=== PATIENT | female | born 1965 | race Caucasian/White ===

== ENCOUNTER 2017-09-18 06:59 | Day surgery (SDC) | payer BC ==
[2017-09-14 14:38] VITALS: BMI 26.6
[~2017-09-18 06:59] MED LIST: DEXAMETHASONE SOD PHOSPHATE 10 MG/ML 1 ML VIAL IV ONE; HYDROmorphone 0.5 MG/0.5 ML SYRINGE IVP PRN; LACTATED RINGERS 1,000 ML IV SCH; LIDOCAINE 1% 20 ML VIAL (10MG/ML) FOR IV START INTRADERMA PRN; MIDAZOLAM 2 MG/2 ML VIAL IV PRN; ONDANSETRON 4 MG/2 ML VIAL IVP ONE; SCOPOLAMINE 1.5MG/72HR PATCH TRANSDERM ONE; ceFAZolin IN SWFI 2 GM/20 ML SYRINGE IVP ONE
[2017-09-18 07:19] VITALS: RESP 16
[2017-09-18] MEDS ORDERED: PROPOFOL 10 MG/ML 20 ML VIAL IV ONE (08:15)
[2017-09-18] MEDS ORDERED: MIDAZOLAM 2 MG/2 ML VIAL ONE (08:15)
[2017-09-18] MEDS ORDERED: LIDOCAINE 1% INJ 10MG/ML (20 ML MDV) ONE (08:15)
[2017-09-18] MEDS ORDERED: fentaNYL (PF) 50 MCG/ML 2 ML AMP ONE (08:15)
[2017-09-18] MEDS ORDERED: LACTATED RINGERS 1,000 ML IV ONE (08:50)
[2017-09-18] MEDS ORDERED: ceFAZolin 1,000 MG in SODIUM CHLORIDE 0.9% 1,000 ML IRRIGATION ONE (09:04)
[2017-09-18] MEDS ORDERED: ROPIVACAINE 1,100 MG, SODIUM CHLORIDE 0.9% 330 ML MISCELLANE PRN ×2 (09:18)
--- NOTE | 2017-09-18 09:20 | P.ONQ ---
Anesthesiology Proc Note - PNB - Peripheral Nerve Block Performed Left Popliteal Infusion Time Out Performed: Yes (0745) Procedure Start Time: 07:45 Procedure Stop Time: 08:00 Indication: Acute Post-Operative Pain, Dx/Pain Location (Left Ankle Pain), Requested by physician Sedation Type: Sedate with meaningful contact maintained Preparation: Sterile Prep Position: Supine Catheter: Indwelling Needle Types: On-Q Needle Size: 100mm (4") Needle Gauge: 21 Injectate: Other (see comment) (10ml 0.5% Ropivacaine + 10ml 2% lidocaine with 1 :200,000 epi) Blood Aspirated: No Pain Paresthesia on Injection Noted: No Resistance on Injection: Normal Events: Uneventful and Well Tolerated
--- NOTE | 2017-09-18 09:21 | P.ONQ ---
Anesthesiology Proc Note - PNB - Peripheral Nerve Block Performed Left Adductor Canal Single Time Out Performed: Yes (0745) Procedure Start Time: 07:45 Procedure Stop Time: 08:00 Indication: Acute Post-Operative Pain, Dx/Pain Location (Left ankle pain), Requested by physician Sedation Type: Sedate with meaningful contact maintained Preparation: Sterile Prep Position: Supine Catheter: None Needle Types: On-Q Needle Size: 100mm (4") Needle Gauge: 21 Injectate: Other (see comment) (10ml 0.5% Ropivacaine + 10 ml 2% Lidocaine with 1:200,000 epi) Blood Aspirated: No Pain Paresthesia on Injection Noted: No Resistance on Injection: Normal Events: Uneventful and Well Tolerated
[2017-09-18] MEDS ORDERED: HYDROcodone/APAP 5-325MG 1 EACH TAB PO PRN (10:13)
[2017-09-18] MEDS ORDERED: hydrOXYzine PAMOATE 25 MG CAP PO PRN (10:13)
[2017-09-18] MEDS ORDERED: HYDROmorphone 1 MG/ML 1 ML SYRINGE IVP PRN ×3 (10:13)
[2017-09-18] MEDS ORDERED: ONDANSETRON 4 MG/2 ML VIAL IVP PRN (10:13)
[2017-09-18] MEDS ORDERED: SENNOSIDES-DOCUSATE SODIUM 1 EACH TAB PO PRN (10:13)
[2017-09-18] MEDS ORDERED: TEMAZEPAM 15 MG CAP PO PRN (10:13)
--- NOTE | 2017-09-18 10:43 | FL ---
EXAMINATION TYPE: FL guidance operating room, XR ankle limited LT DATE OF EXAM: 09/18/2017 CLINICAL HISTORY: Open reduction and internal fixation of the left ankle TECHNIQUE: Fluoroscopy. COMPARISON: None. FINDINGS/IMPRESSION: Fluoroscopic guidance was provided during procedure performed by Dr. Hendrickson. A t otal of 26 seconds of fluoroscopic time was utilized during the procedure and 2 spot images was acqui red during open reduction internal fixation of the left ankle although images were not available for confirmation. Images were subsequently taken it 10:23 AM of the same date.
--- NOTE | 2017-09-18 10:45 | XR ---
EXAMINATION TYPE: XR ankle limited LT DATE OF EXAM: 09/18/2017 CLINICAL HISTORY: Open reduction internal fixation of the left ankle for fracture. Postoperative asse ssment of alignment. TECHNIQUE: Frontal and lateral images of the left ankle are obtained. COMPARISON: None. FINDINGS: There is surgical fixation of a posterior malleolar fracture and lateral malleolar fracture . Overlying casting material obscures bony detail and is uncertain if there is a medial malleolar com ponent. There is also surgical fixation of the fifth metatarsal. Bilateral fracture deformity appears to extend into the medial malleolus of the distal tibia. There is overlying soft tissue swelling and vertical skin mark anthony. Foci of subcutaneous emphysema are subtle. Ankle alignment appears nearly blaine tomic. IMPRESSION: Near-anatomic alignment of the left ankle status post open reduction and internal fixatio n of multiple left ankle fractures.
[2017-09-18] MEDS: LACTATED RINGERS 1,000 ML IV SCH ×2 (11:28→17:03)
--- NOTE | 2017-09-18 13:24 | P.CONS ---
History of Present Illness - Reason for Consult Consult date: 09/18/17 Medical management Requesting physician: Javier Hendrickson - Chief Complaint Left ankle pain - History of Present Illness This is a 51-year-old female who sustained a left ankle fracture few days ago and since then she has been having significant difficulty with pain and ambulation. Patient was evaluated by orthopedic in the office and was admitted to the hospital for elective ORIF of the left tibia/fibular fracture and left ankle. Patient is postoperative day #0. She is laying comfortably in bed. She does not have any concerns or complaints. I was asked to see her for medical management. Review of Systems Review of system: 14 points review of systems were obtained and were negative except to what were mentioned in the HPI. Past Medical History Additional Past Medical History / Comment(s): chronic back pain History of Any Multi-Drug Resistant Organisms: None Reported Past Surgical History: Appendectomy, Breast Surgery, Orthopedic Surgery, Uterine Ablation Additional Past Surgical History / Comment(s): left ankly surgery. breast reduction Past Anesthesia/Blood Transfusion Reactions: No Reported Reaction Smoking Status: Current every day smoker - Past Family History Mother Family Medical History: CVA/TIA, Hyperlipidemia Medications and Allergies Home Medications Medication Instructions Recorded Confirmed Type DULoxetine HCL [Cymbalta] 60 mg PO HS 09/14/17 09/18/17 History Zolpidem [Ambien] 10 mg PO HS PRN 09/14/17 09/18/17 History Allergies Allergy/AdvReac Type Severity Reaction Status Date / Time No Known Allergies Allergy Verified 09/14/17 14:31 Physical Exam Vitals: Vital Signs Temp Pulse Pulse Resp BP BP Pulse Ox 09/18/17 10:53 97 16 132/71 99 09/18/17 10:39 95 16 132/71 99 09/18/17 10:24 99 16 144/77 91 L 09/18/17 10:09 97 F L 103 H 16 144/77 97 09/18/17 07:15 98.0 F 88 16 148/95 98 Intake and Output 09/17/17 09/18/17 09/18/17 22:59 06:59 14:59 Intake Total 1201 Output Total 5 Balance 1196 Intake: IV 1201 Output: Estimated Blood Loss 5 General: The patient is awake and alert, in no distress Eye: there is normal conjunctiva bilaterally. Neck: The neck is supple, there is no JVD. Cardiovascular: Normal S1-S2, no S3-S4, no murmurs. Respiratory: Lungs clear to auscultation bilaterally Gastrointestinal: Abdomen is soft, nontender Musculoskeletal: There is no pedal edema on the right. Left lower extremity in Alexis wrap up to the midshin Neurological:. Speech is normal. Skin: Skin is warm and dry Assessment and Plan Assessment: 1. Postoperative day #0 status post ORIF of left tibia/fibular fracture and left ankle. Continue postoperative care. Orthopedic following closely. 2. DVT prophylaxis with aspirin twice daily per orthopedic protocol 3. Major depressive disorder, maintained on Symbyax at home we'll continue 4. Chronic insomnia, maintained on Ambien 10 mg at bedtime as needed at home. I cut the dose to 5 mg and counseled the patient about FDA black box warning about higher doses 5. Physical debility, awaiting PT/OT evaluation Today, I reviewed her medication list. Continue current regimen. We would obtain general lab work. We will continue to follow-up on the patient's closely with you. Thank you very much for the consultation.
[2017-09-18] MEDS: HYDROcodone/APAP 5-325MG 1 EACH TAB PO PRN ×2 (14:47→20:09)
[2017-09-18 15:17] LABS: ALT 35 U/L (9-52); AST 42 U/L (14-36); Albumin 3.5 g/dL (3.5-5.0); Alkaline Phosphatase 101 U/L (38-126); Anion Gap 7 mmol/L; Blood Urea Nitrogen 9 mg/dL (7-17); Calcium 9.8 mg/dL (8.4-10.2); Carbon Dioxide 25 mmol/L (22-30); Chloride 107 mmol/L (98-107); Glucose 173 mg/dL (74-99); Potassium 4.3 mmol/L (3.5-5.1); Sodium 139 mmol/L (137-145); Total Bilirubin 0.3 mg/dL (0.2-1.3); Total Protein 5.8 g/dL (6.3-8.2)
[2017-09-18 16:43] LABS: Basophils % (A) 0 %; Eosinophils % (A) 0 %; HCT 38.9 % (34.0-46.0); HGB 12.6 gm/dL (11.4-16.0); Lymphocytes # (A) 0.4 k/uL (1.0-4.8); Lymphocytes % (A) 6 %; MCH 33.1 pg (25.0-35.0); MCHC 32.5 g/dL (31.0-37.0); MCV 101.9 fL (80.0-100.0); Macrocytosis Slight; Mean Platelet Volume 7.4; Monocytes # (A) 0.2 k/uL (0-1.0); Monocytes % (A) 2 %; Neutrophils % (A) 91 %; Platelet Count 308 k/uL (150-450); RBC 3.82 m/uL (3.80-5.40); RDW 13.1 % (11.5-15.5); WBC 7.7 k/uL (3.8-10.6)
[2017-09-18] MEDS: ceFAZolin IN SWFI 2 GM/20 ML SYRINGE IVP SCH (17:03)
--- NOTE | 2017-09-18 17:26 | OP ---
OPERATIVE REPORT DATE OF PROCEDURE: 09/18/2017 SURGEON: Javier Hendrickson DO STRAPPER: HERMAN Steele PREOPERATIVE DIAGNOSES: 1. Displaced fracture of the distal left fibula. 2. Nondisplaced fracture of the distal left tibia. PROCEDURE PERFORMED: 1. Open reduction and internal fixation of displaced fracture of the distal left fibula. 2. Percutaneous fixation of the distal left tibial fracture. PROCEDURE: The patient was taken to the operative suite and placed in the supine position. General inhalation anesthesia was performed by Department of Anesthesiology. She had a popliteal and positioned in preparation for surgery. The Betadine prep was carried out over the left foot and ankle. Incision was made. Sterile drapes applied in the usual manner. The tourniquet insufflated to 350 mmHg. An incision was developed at the distal left fibula. Sharp dissection through the subcutaneous tissues performed. The periosteum was elevated and the fracture reduced. Previous tangential screw was noted. The distal fracture wad held in position to align component. A 6-hole tubular plate was then shaped and placed on the distal fibula and secured with screws. X- rays were obtained to document the alignment and placement. The distal tibia fracture was then approached and with reduction of the tibia fracture is stabilized. Two percutaneous screws were placed over guidewires and secured to fascia. Both AP and lateral x-rays showed anatomic position. Stability was well maintained. The area was irrigated both anterior and lateral. The fascia was approximated with 0 Vicryl suture, subcutaneous tissues with 2-0 Vicryl suture and skin approximated with titanium clips. Betadine, Adaptic and sterile pressure dressing applied. Tourniquet was deflated. She was placed in a posterior splint. Patient was transferred to recovery room satisfactory postop condition. GROSS PATHOLOGY: There was displacement of the distal fibula. There was a nondisplaced fracture of the tibia with significant displacement of the interstitial surface at this time. MMODL / IJN: [id number] / KELLY
[2017-09-18] MEDS ORDERED: HYDROmorphone 2 MG TAB PO PRN ×2 (20:17)
[2017-09-18] MEDS ORDERED: HYDROmorphone 4 MG TABLET PO PRN (20:18)
[2017-09-18] MEDS: ASPIRIN 325 MG TAB PO SCH (20:48)
[2017-09-18] MEDS ORDERED: ZOLPIDEM 5 MG TAB PO PRN (21:00)
[2017-09-18] MEDS ORDERED: DULoxetine HCL 60 MG CAPSULE.DR PO SCH (21:00)
[2017-09-19] MEDS: ceFAZolin IN SWFI 2 GM/20 ML SYRINGE IVP SCH (00:16)
[2017-09-19] MEDS: HYDROcodone/APAP 5-325MG 1 EACH TAB PO PRN (02:47)
--- NOTE | 2017-09-19 05:35 | P.PN ---
Progress Note - Text Progress Note Date: 09/19/17 The patient is doing well status post ORIF of the left ankle. Pain is well controlled by a combination of local anesthetic infusion through the popliteal block catheter and oral analgesics. There are no signs of infection around the catheter skin entry site. The local anesthetic infusion will be continued as per protocol.
[2017-09-19] MEDS ORDERED: HYDROcodone/APAP 7.5-325MG 1 EACH TAB PO PRN (08:25)
[2017-09-19] MEDS: ASPIRIN 325 MG TAB PO SCH (08:45)
[2017-09-19] MEDS: HYDROcodone/APAP 7.5-325MG 1 EACH TAB PO PRN ×2 (08:45→13:51)
[2017-09-19 08:52] VITALS: BP 131/88; PULSE 88; TEMP 97
--- NOTE | 2017-09-19 08:52 | P.DS ---
Providers Expected date of discharge: 09/19/17 Attending physician: Javier Hendrickson Consults: 09/18/17 10:16 Consult Physician Routine Consulting Provider: Flor Jeff Consult Reason/Comments: medical management Do you want consulting provider notified?: Yes 09/18/17 10:23 Consult Physician Routine Consulting Provider: Petra Barbosa Consult Reason/Comments: medical managment Do you want consulting provider notified?: Yes Primary care physician: Kevin Torrez - Discharge Diagnosis(es) (1) Status post ORIF of fracture of ankle Current Visit: Yes Status: Acute (2) Fracture of left ankle Current Visit: Yes Status: Acute Hospital Course: This is a 51-year-old female last seen in our office with complaints of left ankle pain after a fall. Patient was found to have a distal tibia and fibula fracture. After discussion and consideration, the patient elected to proceed with an ORIF of the left ankle. Patient was admitted to observation at [facility] underwent an ORIF of the left distal tibia and fibula on 09/18/[address] Hendrickson. The procedure was performed without complications or sequelae. The patient is seen and evaluated at bedside today. Pain is well-controlled. Patient has no new complaints today and denies any fevers, chills, nausea, vomiting, or shortness of breath. Vital signs are stable. Dressing and splint are clean dry and intact. Thigh is soft and nontender. Patient Is able to wiggle her toes freely without difficulty. Patient's left lower extremity is neurovascularly intact. The patient is orthopedically stable for discharge home today. Patient Condition at Discharge: Stable Plan - Discharge Summary Discharge Rx Participant: Yes New Discharge Prescriptions: New Aspirin 325 mg PO BID #60 tab Hydrocodone/Acetaminophen [[place] 7.5-325] 1 - 2 tab PO Q4-6H PRN #60 tab PRN Reason: Pain Sennosides-Docusate Sodium [Senokot-S] 2 tab PO DAILY #30 tablet No Action DULoxetine HCL [Cymbalta] 60 mg PO HS Zolpidem [Ambien] 10 mg PO HS PRN PRN Reason: Insomnia Discharge Medication List DULoxetine HCL [Cymbalta] 60 mg PO HS 09/14/17 [History] Zolpidem [Ambien] 10 mg PO HS PRN 09/14/17 [History] Aspirin 325 mg PO BID #60 tab 09/19/17 [Rx] Hydrocodone/Acetaminophen [[place] 7.5-325] 1 - 2 tab PO Q4-6H PRN #60 tab [Rx] Sennosides-Docusate Sodium [Senokot-S] 2 tab PO DAILY #30 tablet 09/19/17 [Rx] Follow up Appointment(s)/Referral(s): Javier Hendrickson DO [Doctor of Osteopathic Medicine] - 10 Days Activity/Diet/Wound Care/Special Instructions: Keep splint clean, dry, and intact Elevate and ice left ankle Non-weighbearing left leg Follow up with Dr. Hendrickson in 10 days Call [facility] with any questions or concerns, . Discharge Disposition: HOME SELF-CARE
[2017-09-19] MEDS: LACTATED RINGERS 1,000 ML IV SCH (13:55)
--- NOTE | 2017-09-19 14:04 | P.PN ---
Subjective Progress Note Date: 09/19/17 Patient is doing well today. No events overnight. She is looking forward to be discharged home. Objective - Vital Signs Vital signs: Vital Signs Temp 97.0 F L 09/19/17 08:51 Pulse 88 09/19/17 08:51 Resp 16 09/19/17 08:51 BP 131/88 09/19/17 08:51 Pulse Ox 96 09/19/17 08:51 Intake & Output 09/18/17 09/19/17 09/19/17 18:59 06:59 18:59 Intake Total 1301 2100 240 Output Total 5 Balance 1296 2100 240 Weight 77.111 kg Intake: IV 1201 Intake, IV Titration 1300 Amount Lactated Ringers 1,000 ml 1300 @ 100 mls/hr IV .Q10H ROSA M Rx#:[id number] Oral 100 800 240 Output: Estimated Blood Loss 5 Other: # Voids 3 - Exam General: The patient is awake and alert, in no distress Eye: there is normal conjunctiva bilaterally. Neck: The neck is supple, there is no JVD. Cardiovascular: Normal S1-S2, no S3-S4, no murmurs. Respiratory: Lungs clear to auscultation bilaterally Gastrointestinal: Abdomen is soft, nontender Neurological:. Speech is normal. Skin: Skin is warm and dry - Labs CBC & Chem 7: 09/18/17 14:45 09/18/17 14:45 Labs: Abnormal Lab Results - Last 24 Hours (Table) 09/18/17 09/18/17 Range/Units 14:45 14:45 MCV 101.9 H (80.0-100.0) fL Lymphocytes # 0.4 L (1.0-4.8) k/uL Creatinine 0.50 L (0.52-1.04) mg/dL Glucose 173 H (74-99) mg/dL AST 42 H (14-36) U/L Total Protein 5.8 L (6.3-8.2) g/dL Assessment and Plan Assessment: 1. Postoperative day #1 status post ORIF of left tibia/fibular fracture and left ankle. 2. DVT prophylaxis with aspirin twice daily per orthopedic protocol 3. Major depressive disorder, maintained on Cymbalta 4. Chronic insomnia, maintained on Ambien 10 mg at bedtime as needed at home. I cut the dose to 5 mg and counseled the patient about FDA black box warning about higher doses 5. Physical debility, continue physical therapy as tolerated Today, I reviewed her medication list and lab work results. Patient is medically cleared for discharge home
== END 2017-09-19 15:30 | disposition home or self-care (01) ==
LOC: OR 06:59 → 3SUR 10:05 → OR 09-19 15:30
PROVIDERS: ATTEND Orthopaedic Surgery
DX: S82.832A Other fracture of upper and lower end of left fibula, initial encounter for closed fracture (principal); S82.302A Unspecified fracture of lower end of left tibia, initial encounter for closed fracture; W11.XXXA Fall on and from ladder, initial encounter; F32.9 Major depressive disorder, single episode, unspecified; M54.9 Dorsalgia, unspecified; G89.29 Other chronic pain; F51.04 Psychophysiologic insomnia; F17.200 Nicotine dependence, unspecified, uncomplicated; Z79.1 Long term (current) use of non-steroidal anti-inflammatories (NSAID); Z79.899 Other long term (current) drug therapy
CPT/HCPCS: 97162; 80053; 85025; 73600; 27792; 27825; 64447; 64446; C1713; J2250; J1100; J2405; J0690 ×3; J2001; J3010; J2795; J2704

== ENCOUNTER 2022-11-30 12:07 | Emergency (ER) | payer BC, OTHER ==
[2022-11-30 12:46] VITALS: TEMP 98.1
[2022-11-30] MEDS ORDERED: SODIUM CHLORIDE 0.9% 2,000 ML IV STA (14:00)
[2022-11-30] MEDS ORDERED: ONDANSETRON 4 MG/2 ML VIAL IVP STA ×2 (14:00→18:22)
[2022-11-30] MEDS ORDERED: MORPHINE SULFATE 4 MG/ML SYRINGE IV STA ×2 (14:00→18:22)
[2022-11-30 14:19] LABS: Basophils % (A) 0 %; Eosinophils # (A) 0.1 k/uL (0-0.7); Eosinophils % (A) 1 %; Lymphocytes # (A) 0.9 k/uL (1.0-4.8); Lymphocytes % (A) 7 %; MCH 36.5 pg (25.0-35.0); MCHC 34.1 g/dL (31.0-37.0); MCV 106.9 fL (80.0-100.0); Macrocytosis Moderate; Monocytes # (A) 0.8 k/uL (0-1.0); Monocytes % (A) 6 %; Neutrophils # (A) 12.1 k/uL (1.3-7.7); Neutrophils % (A) 86 %; Platelet Count 315 k/uL (150-450); RBC 5.24 m/uL (3.80-5.40); RDW 13.2 % (11.5-15.5); WBC 14.1 k/uL (3.8-10.6)
[2022-11-30 14:23] LABS: HGB 19.1 gm/dL (11.4-16.0)
[2022-11-30 14:29] LABS: ALT 30 U/L (4-34); AST 48 U/L (14-36); African American GFR (CKD) >90 (>60 ml/min/1.73 sqM); Albumin 4.2 g/dL (3.5-5.0); Alkaline Phosphatase 141 U/L (38-126); Anion Gap 12 mmol/L; Blood Urea Nitrogen 8 mg/dL (7-17); Calcium 11.6 mg/dL (8.4-10.2); Carbon Dioxide 29 mmol/L (22-30); Chloride 101 mmol/L (98-107); Glucose 124 mg/dL (74-99); Non-African American GFR(CKD) >90 (>60 ml/min/1.73 sqM); Potassium 3.6 mmol/L (3.5-5.1); Sodium 142 mmol/L (137-145); Total Bilirubin 0.6 mg/dL (0.2-1.3); Total Protein 7.1 g/dL (6.3-8.2)
--- NOTE | 2022-11-30 15:12 | ED ---
Nausea/Vomiting/Diarrhea HPI - General Source: patient Mode of arrival: ambulatory Limitations: no limitations <Pamela Magaña - Last Filed: 12/02/22 00:17> <Ronan Meyer - Last Filed: 12/02/22 01:49> - General Chief complaint: Nausea/Vomiting/Diarrhea Stated complaint: vomiting blood Time Seen by Provider: 11/30/22 12:40 - History of Present Illness Initial comments: 57-year-old female with past nuchal history of chronic back pain who presents to the emergency department with reported nausea and vomiting. States that she has had the symptoms for the past 2 months however they have worsened over the past week. She did see her primary care doctor who placed her on omeprazole. States that she has been avoiding alcohol and spicy foods. She continues to take 2 Aleve a day. She continues to have diffuse epigastric pain with nausea and vomiting. Pain was so bad this morning that she came into the emergency department. She does admit to several episodes of nonbilious, nonbloody vomiting. Denies chest pain or shortness of breath. States that she drinks alcohol once per week however has not drank in the past 2 months due to this pain. No history of abdominal surgeries. No fevers. She has never had an EGD but did get a referral from her primary care doctor. No other alleviating, precipitating factors (Pamela Magaña) - Related Data Home Medications Medication Instructions Recorded Confirmed Omeprazole 40 mg PO W/BRKFST 11/30/22 11/30/22 Ondansetron Odt [Zofran Odt] 4 mg PO Q6H PRN 11/30/22 11/30/22 Sertraline [Zoloft] 100 mg PO DAILY 11/30/22 11/30/22 diazePAM [Valium] 2.5 - 5 mg PO DAILY PRN 11/30/22 11/30/22 hydrOXYzine HCL [Atarax] 25 mg PO DIRECTED 11/30/22 11/30/22 traZODone HCL 100 mg PO HS 11/30/22 11/30/22 Previous Rx's Medication Instructions Recorded HYDROcodone/APAP 5-325MG [[place] 1 tab PO Q4HR PRN 3 Days #18 tab 11/30/22 5-325] Ondansetron Odt [Zofran ODT] 4 mg PO Q8HR PRN #10 tab 11/30/22 Allergies Allergy/AdvReac Type Severity Reaction Status Date / Time No Known Allergies Allergy Verified 11/30/22 13:37 Review of Systems ROS Other: All systems not noted in ROS Statement are negative. <Pamela Magaña - Last Filed: 12/02/22 00:17> ROS Other: All systems not noted in ROS Statement are negative. <Ronan Meyer - Last Filed: 12/02/22 01:49> ROS Statement: Those systems with pertinent positive or pertinent negative responses have been documented in the HPI. Past Medical History Past Medical History: GERD/Reflux Additional Past Medical History / Comment(s): chronic back pain History of Any Multi-Drug Resistant Organisms: None Reported Past Surgical History: Appendectomy, Breast Surgery, Orthopedic Surgery, Uterine Ablation Additional Past Surgical History / Comment(s): left ankly surgery. breast reduction Past Anesthesia/Blood Transfusion Reactions: No Reported Reaction Past Psychological History: Anxiety, Depression Smoking Status: Current every day smoker Past Alcohol Use History: Occasional Past Drug Use History: None Reported - Past Family History Mother Family Medical History: CVA/TIA, Hyperlipidemia <Paemla Magaña - Last Filed: 12/02/22 00:17> General Exam Limitations: no limitations General appearance: alert, in no apparent distress Head exam: Present: atraumatic, normocephalic, normal inspection Eye exam: Present: normal appearance, PERRL, EOMI. Absent: scleral icterus, conjunctival injection, periorbital swelling ENT exam: Present: normal exam, mucous membranes moist Neck exam: Present: normal inspection. Absent: tenderness, meningismus, lympha denopathy Respiratory exam: Present: normal lung sounds bilaterally. Absent: respiratory distress, wheezes, rales, rhonchi, stridor Cardiovascular Exam: Present: regular rate, normal rhythm, normal heart sounds. Absent: systolic murmur, diastolic murmur, rubs, gallop, clicks GI/Abdominal exam: Present: soft, tenderness (Epigastric), normal bowel sounds. Absent: distended, guarding, rebound, rigid Extremities exam: Present: normal inspection, full ROM, normal capillary refill. Absent: tenderness, pedal edema, joint swelling, calf tenderness Back exam: Present: normal inspection Neurological exam: Present: alert, oriented X3, CN II-XII intact Psychiatric exam: Present: normal affect, normal mood Skin exam: Present: warm, dry, intact, normal color. Absent: rash <Pamela Magaña - Last Filed: 12/02/22 00:17> Course Vital Signs 11/30/22 11/30/22 11/30/22 12:36 13:27 13:47 Temperature 98.1 F Pulse Rate 90 85 87 Respiratory 22 20 16 Rate Blood Pressure 144/93 166/110 169/119 O2 Sat by Pulse 97 92 L 96 Oximetry 11/30/22 11/30/22 11/30/22 15:00 15:49 16:44 Temperature Pulse Rate 87 98 68 Respiratory 20 20 20 Rate Blood Pressure 180/110 170/118 180/120 O2 Sat by Pulse 98 96 96 Oximetry 11/30/22 11/30/22 11/30/22 18:00 18:50 18:56 Temperature Pulse Rate 74 70 68 Respiratory 16 20 16 Rate Blood Pressure 180/119 147/100 144/100 O2 Sat by Pulse 98 98 98 Oximetry Medical Decision Making - Lab Data Result diagrams: 11/30/22 14:04 11/30/22 14:04 <Pamela Magaña - Last Filed: 12/02/22 00:17> - Lab Data Result diagrams: 11/30/22 14:04 11/30/22 14:04 <Ronan Meyer - Last Filed: 12/02/22 01:49> - Medical Decision Making Was pt. sent in by a medical professional or institution (, PA, DRUG AND ALCOHOL TREATMENT SPECIALIST, urgent care, hospital, or intermediate...) When possible be specific @ -No Did you speak to anyone other than the patient for history (EMS, parent, family, police, friend...)? What history was obtained from this source @ -No Did you review nursing and triage notes (agree or disagree)? Why? @ -I reviewed and agree with nursing and triage notes Were old charts reviewed (outside hosp., previous admission, EMS record, old EKG, old radiological studies, urgent care reports/EKG's, intermediate records)? Report findings @ -No old charts were reviewed Differential Diagnosis (chest pain, altered mental status, abdominal pain women, abdominal pain men, vaginal bleeding, weakness, fever, dyspnea, syncope, headache, dizziness, GI bleed, back pain, seizure, CVA, palpatations, mental health, musculoskeletal)? @ -Differential Abdominal Pain Women: Appendicitis, Cholecystitis, diverticulosis, ischemic bowel, pancreatitis, hepatitis, UTI, gastroenteritis, AAA, incarcerated hernia, bowel obstruction, constipation, inflammatory bowel, hepatitis, peptic ulcer disease, splenic infarction, perforated viscus, vulvitis, ovarian torsion, PID, kidney stone, placenta abruption, this is not meant to be an all-inclusive list EKG interpreted by me (3pts min.). @ -Yes demonstrates sinus rhythm with a rate of 84. AL interval 173. QRS 84. QTC of 428. No acute signal elevations or depressions X-rays interpreted by me (1pt min.). @ -None done CT interpreted by me (1pt min.). @ -Pending at this time U/S interpreted by me (1pt. min.). @ -None done What testing was considered but not performed or refused? (CT, X-rays, U/S, labs)? Why? @ -None What meds were considered but not given or refused? Why? @ -None Did you discuss the management of the patient with other professionals (professionals i.e. , PA, DRUG AND ALCOHOL TREATMENT SPECIALIST, lab, RT, psych nurse, oncology social work, director mba, teacher, operational intelligence officer, hospice case manager)? Give summary @ -I spoke with Dr. Campos who will follow-up on the patient's labs and imaging Was smoking cessation discussed for >3mins.? @ -No Was critical care preformed (if so, how long)? @ -No Were there social determinants of health that impacted care today? How? (Homelessness, low income, unemployed, alcoholism, drug addiction, transportation, low edu. Level, literacy, decrease access to med. care, custodial, rehab)? @ -No Was there de-escalation of care discussed even if they declined (Discuss DNR or withdrawal of care, Hospice)? DNR status @ -No What co-morbidities impacted this encounter? (DM, HTN, Smoking, COPD, CAD, Cancer, CVA, ARF, Chemo, Hep., AIDS, mental health diagnosis, sleep apnea, morbid obesity)? @ -None Was patient admitted / discharged? Hospital course, mention meds given and route, prescriptions, significant lab abnormalities, going to OR and other pertinent info. @ -Upon arrival she was placed into room 17. Thorough history and physical exam was performed. IV is established. She was given morphine and Zofran for pain control. Laboratory studies are pending as well as a CT of her abdomen. Patient will be signed out to Dr. Ramírez for further management Undiagnosed new problem with uncertain prognosis? @ -Yes Drug Therapy requiring intensive monitoring for toxicity (Heparin, Nitro, Insulin, Cardizem)? @ -No Were any procedures done? @ -No Diagnosis/symptom? @ -Acute epigastric abdominal pain Acute, or Chronic, or Acute on Chronic? @ -Acute Uncomplicated (without systemic symptoms) or Complicated (systemic symptoms)? @ -Complicated Side effects of treatment? @ -No Exacerbation, Progression, or Severe Exacerbation? @ -No Poses a threat to life or bodily function? How? (Chest pain, USA, CT, pneumonia, PE, COPD, DKA, ARF, appy, cholecystitis, CVA, Diverticulitis, Homicidal, Suicidal, threat to staff... and all critical care pts) @ -No (Pamela Magaña) Was patient admitted / discharged? Hospital course, mention meds given and route, prescriptions, significant lab abnormalities, going to OR and other pertinent info. @ -[This patient was signed out to me pending studies. I did reevaluate the p atient multiple times to follow the progress of antihypertensives and analgesics and to discuss study results. I strongly recommended the patient that she stay to have treatment for the acute pancreatitis, as well as further studies to rule out pancreatic mass. In addition would like to see better blood pressure control. The patient stated that there were some things that she needed to take care of at home. She did express understanding of the serious nature of the medical conditions, and stated she would return if she is not having clear improvement. We discussed importance of following up to rule out malignancy. Recommended alcohol cessation. Discussed that if the patient is leaving because she is concerned about stopping drinking that we have medications that can blot withdrawal symptoms. Discussed appropriate further care and follow-up as well as return parameters. Patient left AGAINST MEDICAL ADVICE Undiagnosed new problem with uncertain prognosis? @ -[No] Drug Therapy requiring intensive monitoring for toxicity (Heparin, Nitro, Insulin, Cardizem)? @ -[No] Were any procedures done? @ -[No] Diagnosis/symptom? @ -[Acute pancreatitis Acute hypertension Possible pancreatic mass. Alcohol abuse Acute, or Chronic, or Acute on Chronic? @ -[Acute Uncomplicated (without systemic symptoms) or Complicated (systemic symptoms)? @ -[Complicated Side effects of treatment? @ -[No] Exacerbation, Progression, or Severe Exacerbation? @ -[No] Poses a threat to life or bodily function? How? (Chest pain, USA, CT, pneumonia, PE, COPD, DKA, ARF, appy, cholecystitis, CVA, Diverticulitis, Homicidal, Suicidal, threat to staff... and all critical care pts) @ -[Yes there is small risk posed to life. Acute pancreatitis may worsen then develop complications requiring surgery. Untreated hypertension will progress to eventual organ dysfunction/failure. (Ronan Meyer) - Lab Data Lab Results 11/30/22 11/30/22 11/30/22 Range/Units 14:04 14:04 14:04 WBC 14.1 H (3.8-10.6) k/uL RBC 5.24 (3.80-5.40) m/uL Hgb 19.1 H* (11.4-16.0) gm/dL Hct 56.0 H (34.0-46.0) % MCV 106.9 H (80.0-100.0) fL MCH 36.5 H (25.0-35.0) pg MCHC 34.1 (31.0-37.0) g/dL RDW 13.2 (11.5-15.5) % Plt Count 315 (150-450) k/uL MPV 9.0 Neutrophils % 86 % Lymphocytes % 7 % Monocytes % 6 % Eosinophils % 1 % Basophils % 0 % Neutrophils # 12.1 H (1.3-7.7) k/uL Lymphocytes # 0.9 L (1.0-4.8) k/uL Monocytes # 0.8 (0-1.0) k/uL Eosinophils # 0.1 (0-0.7) k/uL Basophils # 0.0 (0-0.2) k/uL Macrocytosis Moderate Sodium 142 (137-145) mmol/L Potassium 3.6 (3.5-5.1) mmol/L Chloride 101 (98-107) mmol/L Carbon Dioxide 29 (22-30) mmol/L Anion Gap 12 mmol/L BUN 8 (7-17) mg/dL Creatinine 0.48 L (0.52-1.04) mg/dL Est GFR (CKD-EPI)AfAm >90 (>60 ml/min/1.73 sqM) Est GFR (CKD-EPI)NonAf >90 (>60 ml/min/1.73 sqM) Glucose 124 H (74-99) mg/dL Calcium 11.6 H (8.4-10.2) mg/dL Total Bilirubin 0.6 (0.2-1.3) mg/dL AST 48 H (14-36) U/L ALT 30 (4-34) U/L Alkaline Phosphatase 141 H (38-126) U/L Total Protein 7.1 (6.3-8.2) g/dL Albumin 4.2 (3.5-5.0) g/dL Lipase 45551 H (23-300) U/L Urine Color Colorless Urine Appearance Clear (Clear) Urine pH 8.0 (5.0-8.0) Ur Specific Ethel 1.046 H (1.001-1.035) Urine Protein Negative (Negative) Urine Glucose (UA) Negative (Negative) Urine Ketones 1+ H (Negative) Urine Blood Negative (Negative) Urine Nitrite Negative (Negative) Urine Bilirubin Negative (Negative) Urine Urobilinogen <2.0 (<2.0) mg/dL Ur Leukocyte Esterase Negative (Negative) Disposition <Pamela Magaña - Last Filed: 12/02/22 00:17> Is patient prescribed a controlled substance at d/c from ED?: Yes <Ronan Meyer - Last Filed: 12/02/22 01:49> Clinical Impression: Hypertension, Pancreatitis, acute Disposition: LEFT AGAINST MEDICAL ADVICE Condition: Fair Instructions (If sedation given, give patient instructions): Pancreatitis (ED), Hypertension (ED) Prescriptions: HYDROcodone/APAP 5-325MG [[place] 5-325] 1 tab PO Q4HR PRN 3 Days #18 tab PRN Reason: Pain Ondansetron Odt [Zofran ODT] 4 mg PO Q8HR PRN #10 tab PRN Reason: Nausea Referrals: Nonstaff,Physician [Primary Care Provider] - 1-2 days
--- NOTE | 2022-11-30 15:48 | CT ---
EXAMINATION TYPE: CT abdomen pelvis w con DATE OF EXAM: 11/30/2022 COMPARISON: None HISTORY: vomiting epigastric pain CONTRAST: CT scan of the abdomen and pelvis is performed without Oral Contrast and , patient injected with 100 mL of Isovue 300. FINDINGS: LUNG BASES-: No visible nodule. No infiltrate. LIVER/GB: No calcified gallstones. No space occupying hepatic lesion. PANCREAS: There is edema of the pancreas with peripancreatic fluid seen. There is a masslike area wit hin the region of the pancreatic head for which neoplasm is not excluded. Additional consideration is that of early necrotic tissue. Correlate clinically. Active edema seen of the adjacent duodenum. Com mon bile duct is dilated at 8.3 cm. SPLEEN: No splenic enlargement. No lesion seen. ADRENALS: No nodule. No thickening. KIDNEYS/BLADDER: No hydronephrosis. No nephrolithiasis. No distinct renal mass. Urinary bladder g rossly unremarkable. BOWEL: Normal appendix. Normal bowel caliber. No inflammation. GENITAL ORGANS: No gross abnormality. LYMPH NODES: No greater than 1cm abdominal or pelvic lymph nodes are appreciated. AORTA: No significant abnormality. OSSEOUS STRUCTURES: No significant abnormality is seen. OTHER: No significant additional abnormality is seen. IMPRESSION: 1. Noted are changes of acute pancreatitis with edema of the pancreas noted most pronounced in the re gion of the pancreatic head where I cannot exclude early pancreatic necrosis or neoplasm. There are s urrounding peripancreatic fluid noted. 2. Reactive wall thickening of the descending duodenum.
[2022-11-30] MEDS ORDERED: LORazepam 2 MG/ML INJ IV STA (15:55)
[2022-11-30 15:58] LABS: Appearance,Urine Clear (Clear); Bilirubin,Urine Negative (Negative); Blood,Urine Negative (Negative); Color,Urine Colorless; Glucose,Urine (UA) Negative (Negative); Ketones,Urine 1+ (Negative); Leukocyte Esterase,Urine Negative (Negative); Nitrite,Urine Negative (Negative); Protein,Urine Negative (Negative); Urobilinogen,Urine <2.0 mg/dL (<2.0)
[2022-11-30 16:08] LABS: Specific Gravity,Urine 1.046 (1.001-1.035)
[2022-11-30 16:33] LABS: Lipase 10553 U/L (23-300)
[2022-11-30] MEDS ORDERED: LABETALOL 5 MG/ML VIAL MDV IVP STA (17:40)
[2022-11-30 18:14] VITALS: RESP 16
[2022-11-30 18:57] VITALS: BP 144/100; PULSE 68
== END 2022-11-30 18:57 | disposition left against medical advice (07) ==
LOC: EC 12:07
DX: K85.90 Acute pancreatitis without necrosis or infection, unspecified (principal); I10 Essential (primary) hypertension; F41.9 Anxiety disorder, unspecified; F32.A Depression, unspecified; F17.200 Nicotine dependence, unspecified, uncomplicated; K21.9 Gastro-esophageal reflux disease without esophagitis; Z79.899 Other long term (current) drug therapy; Z53.29 Procedure and treatment not carried out because of patient's decision for other reasons
CPT/HCPCS: 36415; 93005; 80053; 83690; 85025; 81003; 74177; 99285; 96374; 96375 ×3; 96376 ×2; 96361 ×5; J2060; J2270; J2405; Q9967; J1920

== ENCOUNTER 2023-07-25 05:57 | Day surgery (SDC) | payer BC ==
[2023-07-20 11:02] VITALS: BMI 24.3
[~2023-07-25 05:57] MED LIST changes: -DEXAMETHASONE SOD PHOSPHATE 10 MG/ML 1 ML VIAL IV ONE; -HYDROmorphone 0.5 MG/0.5 ML SYRINGE IVP PRN; -LACTATED RINGERS 1,000 ML IV SCH; +LIDOCAINE 1% (10MG/ML) FOR IV START INTRADERMA PRN; -LIDOCAINE 1% 20 ML VIAL (10MG/ML) FOR IV START INTRADERMA PRN; -MIDAZOLAM 2 MG/2 ML VIAL IV PRN; -ONDANSETRON 4 MG/2 ML VIAL IVP ONE; -SCOPOLAMINE 1.5MG/72HR PATCH TRANSDERM ONE; -ceFAZolin IN SWFI 2 GM/20 ML SYRINGE IVP ONE
[2023-07-25] MEDS: LACTATED RINGERS 1,000 ML IV SCH (06:18)
[2023-07-25] MEDS ORDERED: fentaNYL (PF) 50 MCG/ML 2 ML AMP ONE (07:00)
[2023-07-25] MEDS ORDERED: MIDAZOLAM 2 MG/2 ML VIAL ONE (07:00)
[2023-07-25] MEDS ORDERED: LIDOCAINE 1% INJ 10MG/ML (20 ML MDV) ONE (07:00)
[2023-07-25] MEDS ORDERED: PROPOFOL 10 MG/ML 20 ML VIAL IV ONE (07:00)
[2023-07-25] MEDS ORDERED: ONDANSETRON 4 MG/2 ML VIAL IVP PRN (07:00)
[2023-07-25 07:14] VITALS: TEMP 98
--- NOTE | 2023-07-25 07:28 | P.PCN ---
Date of Procedure: 07/25/23 Procedure(s) Performed: Brief history: Patient is a pleasant 57-year-old white scheduled for an elective upper endoscopy as well as colonoscopy as a part of evaluation of epigastric pain for the last 1 year duration associated intermittent nausea vomiting. Is scheduled for colonoscopy as a part of screening for colorectal neoplasia Procedure performed: Esophagogastroduodenoscopy with biopsy Colonoscopy Preoperative diagnosis: Chronic epigastric pain/nausea vomiting Screening for colon cancer Anesthesia: [facility] Procedure: After informed consent was obtained from the patient was brought into the endoscopy unit and IV sedation was administered by anesthesia under continuous monitoring. Initially upper endoscopy was done. The Olympus GF 160 video endoscope was inserted inserted into the mouth and esophagus intubated without any difficulty and was gradually advanced into the stomach and duodenum and carefully examined. The bulb and second part of the duodenum appeared normal. The scope was then withdrawn into the stomach adequately insufflated with air and upon careful examination the antrum and body, gastritis and biopsies were done from this area. Mucosa cardia and fundus appeared normal. The scope was then withdrawn into the esophagus. The GE junction was located at 40 cm to the incisors. It appeared regular with no erythema erosions or ulcerations. Done from the distal soft rest of the esophagus appeared normal. Patient tolerated the procedure well. At this time the patient continued to remain sedation. Initial digital rectal examination was normal. Olympus CF 160 video colonoscope was then inserted into the rectum and gradually advanced to the cecum without any difficulty. Careful examination was performed as the scope was gradually being withdrawn. The prep was excellent. The cecum, ascending colon, transverse colon, descending colon, sigmoid colon and rectum appeared normal. Retroflexion was performed in the rectum and no lesions were noted. Patient tolerated the procedure well. Impression: 1. Upper endoscopy revealed diffuse gastritis but no evidence of esophagitis or peptic ulcer disease 2. Colonoscopy revealed diverticulosis but no evidence of colorectal neoplasia Recommendations: Findings of this examination were discussed with the patient as well as her family. She was advised to follow-up with the biopsy results. Advised to increase omeprazole to 20 mg twice daily and follow antireflux measures. Recommended repeat screening colonoscopy in 10 years.
[2023-07-25 08:04] VITALS: BP 141/85; PULSE 98; RESP 17
== END 2023-07-25 08:17 | disposition home or self-care (01) ==
LOC: ORWHC2ENDO 05:57
PROVIDERS: ATTEND Internal Medicine Gastroenterology
DX: Z12.11 Encounter for screening for malignant neoplasm of colon (principal); K29.50 Unspecified chronic gastritis without bleeding; K57.30 Diverticulosis of large intestine without perforation or abscess without bleeding; G89.29 Other chronic pain; M19.90 Unspecified osteoarthritis, unspecified site; F41.9 Anxiety disorder, unspecified; F32.A Depression, unspecified; K21.9 Gastro-esophageal reflux disease without esophagitis; F41.0 Panic disorder [episodic paroxysmal anxiety]; Z79.899 Other long term (current) drug therapy; Z90.49 Acquired absence of other specified parts of digestive tract; Z98.890 Other specified postprocedural states
CPT/HCPCS: 88305; 45378; 43239; J2250; J2001; J3010; J2704

== ENCOUNTER → 2023-08-29 | Outpatient (CLI) | payer BC ==
--- NOTE | 2023-08-29 10:12 | CT ---
EXAMINATION TYPE: CT shoulder RT wo con CT DLP: 362.6 mGycm, Automated exposure control for dose reduction was used. DATE OF EXAM: 08/29/2023 10:04 AM COMPARISON: None CLINICAL INDICATION:Female, 57 years old with history of S42.231A 3-PART FRACTURE OF SURGICAL NECK OF RIGHT; PHH, right shoulder fx, surgical planning TECHNIQUE: Axial images were obtained of the right shoulder without the use of IV contrast. Addition al coronal and sagittal reformatted images and soft tissue and bone window were obtained for review. 3-D reconstruction was created on a separate workstation. FINDINGS: Acute comminuted fracture of the right proximal humeral neck with extension into the lateral and supe rior aspects of the humeral head. There is approximately 2.3 cm of shortening identified. Lateral dis placement of the distal aspect of the proximal humerus fracture approximately 1.6 cm posterior latera lly. No dislocation. Hyperdense material is identified layering within the joint space likely represe nting blood products and fracture fragments. There is surrounding soft tissue swelling. The scapula and clavicle are intact. Mild AC joint arthropathy with joint space narrowing and inferio r marginal osteophytosis. No radiopaque foreign body identified. The visualized right lung is clear. IMPRESSION: Acute comminuted displaced fracture of the right proximal humeral neck with extension through the hum eral head.
== END | disposition home or self-care (01) ==
LOC: RADCTMAIN 09:33
PROVIDERS: ATTEND Orthopaedic Surgery
DX: S42.351A Displaced comminuted fracture of shaft of humerus, right arm, initial encounter for closed fracture (principal); S42.231A 3-part fracture of surgical neck of right humerus, initial encounter for closed fracture; X58.XXXA Exposure to other specified factors, initial encounter

== ENCOUNTER 2024-04-28 09:23 | Observation (INO) | payer BC ==
--- NOTE | 2024-04-28 09:55 | ED ---
General Adult HPI - General Source: patient, EMS, RN notes reviewed Mode of arrival: EMS Limitations: no limitations <Nils Navarro - Last Filed: 04/28/24 09:54> - General Source: patient, RN notes reviewed Limitations: no limitations <Efrain Kerr - Last Filed: 04/28/24 11:38> - General Stated complaint: epistaxis and shortness of breath Time Seen by Provider: 04/28/24 09:23 - History of Present Illness Initial comments: Quick note 58-year-old female presents emergency department via EMS for multiple complaints. Patient states she feels short of breath, weak, states that she had a bloody nose for a while today. Patient states she just generally does not feel well denies fever denies any focal weakness. (Nils Navarro) Patient is a 58-year-old female present to the emergency department with several complaints. Patient feels weak fatigued and had an episode of epistaxis this morning lasted an hour. Patient had a similar episode around a week ago. Patient for the past week has had audible episodes of nausea and vomiting. No constipation or diarrhea. Patient has had some congestion and cough. (Efrain Orosco) - Related Data Home Medications Medication Instructions Recorded Confirmed Sertraline [Zoloft] 100 mg PO QAM 11/30/22 07/25/23 hydrOXYzine HCL [Atarax] 25 mg PO QAM 11/30/22 07/25/23 busPIRone HCL [Buspar] 7.5 mg PO DIRECTED PRN 07/20/23 07/25/23 Allergies Allergy/AdvReac Type Severity Reaction Status Date / Time No Known Allergies Allergy Verified 04/28/24 09:54 Review of Systems ROS Other: All systems not noted in ROS Statement are negative. <Nils Navarro - Last Filed: 04/28/24 09:54> ROS Other: All systems not noted in ROS Statement are negative. ENT: Reports: epistaxis. Denies: ear pain Respiratory: Reports: cough Cardiovascular: Denies: chest pain Endocrine: Reports: fatigue Gastrointestinal: Reports: abdominal pain, nausea, vomiting Genitourinary: Denies: dysuria Musculoskeletal: Denies: back pain <Efrain Kerr - Last Filed: 04/28/24 11:38> ROS Statement: Those systems with pertinent positive or pertinent negative responses have been documented in the HPI. Past Medical History Past Medical History: GERD/Reflux, Osteoarthritis (OA), Skin Disorder Additional Past Medical History / Comment(s): Recent right ear infection, completed antibiotics and feeling better. Chronic back pain. Cannot recall name of skin disorder, states constantly scratching legs. History of Any Multi-Drug Resistant Organisms: None Reported Past Surgical History: Appendectomy, Breast Surgery, Orthopedic Surgery, Uterine Ablation Additional Past Surgical History / Comment(s): Left ankle surgery, breast reduction. Past Anesthesia/Blood Transfusion Reactions: No Reported Reaction Past Psychological History: Anxiety, Depression, Panic Disorder Smoking Status: Current every day smoker Past Alcohol Use History: Occasional Past Drug Use History: None Reported - Past Family History Mother Family Medical History: CVA/TIA, Deep Vein Thrombosis (DVT), Hyperlipidemia Father Family Medical History: Cancer <Nils Navarro - Last Filed: 04/28/24 09:54> General Exam Limitations: no limitations <Nils Navarro - Last Filed: 04/28/24 09:54> Limitations: no limitations General appearance: alert, in no apparent distress Head exam: Present: normocephalic Eye exam: Present: normal appearance ENT exam: Present: other (Dried blood bilateral nares) Neck exam: Present: normal inspection Respiratory exam: Present: normal lung sounds bilaterally Cardiovascular Exam: Present: tachycardia GI/Abdominal exam: Present: soft. Absent: distended, tenderness Extremities exam: Present: normal inspection Neurological exam: Present: alert Psychiatric exam: Present: normal affect, normal mood Skin exam: Present: normal color <Efrain Kerr - Last Filed: 04/28/24 11:38> - General Exam Comments Initial Comments: Visual Physical Exam Vital signs reviewed General: Well-appearing, nontoxic, no acute distress. Head: Normocephalic, atraumatic Eyes: PERRLA, EOMI ENT: Airway patent Chest: Nonlabored breathing Skin: No visual rash, normal skin tone Neuro: Alert and oriented 3 Musculoskeletal: No gross abnormalities (Nils Navarro) Course Vital Signs 04/28/24 04/28/24 09:49 09:54 Temperature 97.8 F Pulse Rate 132 H Respiratory 20 Rate Blood Pressure 96/62 O2 Sat by Pulse 97 Oximetry EKG Findings - EKG Results: EKG: interpreted by ERMD (LVH criteria. Inferior Q wave 3 and aVF.), sinus rhythm, normal axis, normal ST/T EKG shows: tachycardia <KerrEfrain - Last Filed: 04/28/24 11:38> Medical Decision Making <Nils Navarro - Last Filed: 04/28/24 09:54> - Lab Data Result diagrams: 04/28/24 10:02 04/28/24 10:02 <CiriloEfrain - Last Filed: 04/28/24 11:38> - Medical Decision Making I completed the quick note portion of this chart signed Nils Navarro PA-C (Nils Navarro) Was pt. sent in by a medical professional or institution (Dr. PA, MOTION STUDY ENGINEER, urgent care, hospital, or senior care...) When possible be specific @ -No Did you speak to anyone other than the patient for history (EMS, parent, family, police, friend...)? What history was obtained from this source @ -No Did you review nursing and triage notes (agree or disagree)? Why? @ -I reviewed and agree with nursing and triage notes Were old charts reviewed (outside hosp., previous admission, EMS record, old EKG, old radiological studies, urgent care reports/EKG's, senior care records)? Report findings @ -No old charts were reviewed Differential Diagnosis (chest pain, altered mental status, abdominal pain women, abdominal pain men, vaginal bleeding, weakness, fever, dyspnea, syncope, headache, dizziness, GI bleed, back pain, seizure, CVA, palpatations, mental health, musculoskeletal)? @ -Differential Abdominal Pain Women: Appendicitis, Cholecystitis, diverticulosis, ischemic bowel, pancreatitis, hepatitis, UTI, gastroenteritis, AAA, incarcerated hernia, bowel obstruction, constipation, inflammatory bowel, hepatitis, peptic ulcer disease, splenic infarction, perforated viscus, vulvitis, ovarian torsion, PID, kidney stone, placenta abruption, this is not meant to be an all-inclusive list EKG interpreted by me (3pts min.). @ -As above X-rays interpreted by me (1pt min.). @ -Chest x-ray shows no acute process CT interpreted by me (1pt min.). @ -None done U/S interpreted by me (1pt. min.). @ -None done What testing was considered but not performed or refused? (CT, X-rays, U/S, labs)? Why? @ -CT scan abdomen pelvis will be added What meds were considered but not given or refused? Why? @ -None Did you discuss the management of the patient with other professionals (professionals i.e. , PA, MOTION STUDY ENGINEER, lab, RT, psych nurse, social worker masters, hide cooking operator, teacher, officer captain, caser)? Give summary @ -Case was discussed with Dr. Casanova who will admit covering hospital call Was smoking cessation discussed for >3mins.? @ -No Was critical care preformed (if so, how long)? @ -No Were there social determinants of health that impacted care today? How? (Homelessness, low income, unemployed, alcoholism, drug addiction, transportation, low edu. Level, literacy, decrease access to med. care, [facility], rehab)? @ -No Was there de-escalation of care discussed even if they declined (Discuss DNR or withdrawal of care, Hospice)? DNR status @ -No What co-morbidities impacted this encounter? (DM, HTN, Smoking, COPD, CAD, Cancer, CVA, ARF, Chemo, Hep., AIDS, mental health diagnosis, sleep apnea, morbid obesity)? @ -None Was patient admitted / discharged? Hospital course, mention meds given and route, prescriptions, significant lab abnormalities, going to OR and other pertinent info. @ -Patient presents with vomiting over the past week. Lab studies concerning for pancreatitis. Patient will be admitted with GI consult. CT scan will be ordered. Admission orders written. Patient reevaluated and updated. Undiagnosed new problem with uncertain prognosis? @ -No Drug Therapy requiring intensive monitoring for toxicity (Heparin, Nitro, Insulin, Cardizem)? @ -No Were any procedures done? @ -No Diagnosis/symptom? @ -Pancreatitis, epistaxis Acute, or Chronic, or Acute on Chronic? @ -Acute, acute Uncomplicated (without systemic symptoms) or Complicated (systemic symptoms)? @ -Default Side effects of treatment? @ -No Exacerbation, Progression, or Severe Exacerbation? @ -No Poses a threat to life or bodily function? How? (Chest pain, USA, AR, pneumonia, PE, COPD, DKA, ARF, appy, cholecystitis, CVA, Diverticulitis, Homicidal, Suicidal, threat to staff... and all critical care pts) @ -Threat to gastrointestinal function (Efrain Kerr) - Lab Data Lab Results 04/28/24 04/28/24 04/28/24 Range/Units 10:02 10:02 10:02 WBC 13.3 H (3.8-10.6) k/uL RBC 3.76 L (3.80-5.40) m/uL Hgb 12.6 (11.4-16.0) gm/dL Hct 39.5 (34.0-46.0) % MCV 105.1 H (80.0-100.0) fL MCH 33.6 (25.0-35.0) pg MCHC 32.0 (31.0-37.0) g/dL RDW 13.7 (11.5-15.5) % Plt Count 470 H (150-450) k/uL MPV 7.5 Neutrophils % 86 % Lymphocytes % 6 % Monocytes % 5 % Eosinophils % 1 % Basophils % 0 % Neutrophils # 11.4 H (1.3-7.7) k/uL Lymphocytes # 0.8 L (1.0-4.8) k/uL Monocytes # 0.7 (0-1.0) k/uL Eosinophils # 0.2 (0-0.7) k/uL Basophils # 0.0 (0-0.2) k/uL Hypochromasia Slight Macrocytosis Slight Sodium 136 L (137-145) mmol/L Potassium 3.7 (3.5-5.1) mmol/L Chloride 103 (98-107) mmol/L Carbon Dioxide 13 L (22-30) mmol/L Anion Gap 20 mmol/L BUN 11 (7-17) mg/dL Creatinine 0.77 (0.52-1.04) mg/dL Est GFR (CKD-EPI)AfAm >90 (>60 ml/min/1.73 sqM) Est GFR (CKD-EPI)NonAf 84 (>60 ml/min/1.73 sqM) Glucose 140 H (74-99) mg/dL Calcium 10.7 H (8.4-10.2) mg/dL Total Bilirubin 1.1 (0.2-1.3) mg/dL AST 54 H (14-36) U/L ALT 25 (4-34) U/L Alkaline Phosphatase 102 (38-126) U/L Troponin I 0.016 (0.000-0.034) ng/mL Total Protein 6.7 (6.3-8.2) g/dL Albumin 4.2 (3.5-5.0) g/dL Lipase 2271 H (23-300) U/L Disposition <Nils Navarro - Last Filed: 04/28/24 09:54> Is patient prescribed a controlled substance at d/c from ED?: No Time of Disposition: 11:38 <Efrain Kerr - Last Filed: 04/28/24 11:38> Clinical Impression: Pancreatitis Disposition: ADMITTED IP TO THIS HOSP Referrals: None,Stated [Primary Care Provider] - 1-2 days
[2024-04-28 10:24] LABS: Basophils % (A) 0 %; Eosinophils # (A) 0.2 k/uL (0-0.7); Eosinophils % (A) 1 %; HCT 39.5 % (34.0-46.0); HGB 12.6 gm/dL (11.4-16.0); Hypochromasia Slight; Lymphocytes # (A) 0.8 k/uL (1.0-4.8); Lymphocytes % (A) 6 %; MCH 33.6 pg (25.0-35.0); MCV 105.1 fL (80.0-100.0); Macrocytosis Slight; Mean Platelet Volume 7.5; Monocytes # (A) 0.7 k/uL (0-1.0); Monocytes % (A) 5 %; Neutrophils # (A) 11.4 k/uL (1.3-7.7); Neutrophils % (A) 86 %; Platelet Count 470 k/uL (150-450); RBC 3.76 m/uL (3.80-5.40); RDW 13.7 % (11.5-15.5); WBC 13.3 k/uL (3.8-10.6)
[2024-04-28 10:34] LABS: AST 54 U/L (14-36); African American GFR (CKD) >90 (>60 ml/min/1.73 sqM); Anion Gap 20 mmol/L; Blood Urea Nitrogen 11 mg/dL (7-17); Calcium 10.7 mg/dL (8.4-10.2); Carbon Dioxide 13 mmol/L (22-30); Chloride 103 mmol/L (98-107); Glucose 140 mg/dL (74-99); Non-African American GFR(CKD) 84 (>60 ml/min/1.73 sqM); Sodium 136 mmol/L (137-145); Total Bilirubin 1.1 mg/dL (0.2-1.3)
--- NOTE | 2024-04-28 10:36 | XR ---
EXAMINATION TYPE: XR chest 2V DATE OF EXAM: 04/28/2024 10:25 AM COMPARISON: CT right shoulder 08/29/2023 TECHNIQUE: XR chest 2V Frontal and lateral views of the chest. CLINICAL INDICATION:Female, 58 years old with history of sob; FINDINGS: Lungs/Pleura: There is no evidence of pleural effusion, focal consolidation, or pneumothorax. Pulmonary vascularity: Unremarkable. Heart/mediastinum: Cardiomediastinal silhouette is unremarkable. Musculoskeletal: No acute osseous pathology. Remote fracture deformity of the right proximal humerus. IMPRESSION: No acute cardiopulmonary disease/process. [facility], , 04/28/2024 10:34 AM
[2024-04-28 10:45] LABS: ALT 25 U/L (4-34); Albumin 4.2 g/dL (3.5-5.0); Alkaline Phosphatase 102 U/L (38-126); Potassium 3.7 mmol/L (3.5-5.1); Total Protein 6.7 g/dL (6.3-8.2)
[2024-04-28 10:46] LABS: Lipase 2271 U/L (23-300)
[2024-04-28] MEDS: MORPHINE SULFATE 4 MG/ML SYRINGE IVP STA (11:30)
[2024-04-28] MEDS: ONDANSETRON 4 MG/2 ML VIAL IVP STA (11:32)
[2024-04-28] MEDS: FAMOTIDINE 20 MG/2 ML VIAL IV STA (11:32)
[2024-04-28] MEDS: SODIUM CHLORIDE 0.9% 500 ML 500 ML IV STA (11:33)
[2024-04-28] MEDS ORDERED: IOPAMIDOL CONTRAST (ORAL USE) VIAL PO PRN (11:38)
[2024-04-28] MEDS ORDERED: HYDROmorphone 1 MG/ML 1 ML SYRINGE IVP PRN (11:39)
[2024-04-28] MEDS ORDERED: ONDANSETRON 4 MG/2 ML VIAL IVP PRN (11:39)
[2024-04-28] MEDS ORDERED: NALOXONE 0.4 MG/ML 1 ML VIAL IV PRN (11:39)
[2024-04-28 12:14] LABS: Prothrombin Time 11.1 sec (10.0-12.5)
[2024-04-28] MEDS: SODIUM CHLORIDE 0.9% 1,000 ML IV STA (12:18)
[2024-04-28] MEDS: PANTOPRAZOLE 40 MG/10 ML VIAL IV SCH (12:18)
[2024-04-28] MEDS: SODIUM CHLORIDE 0.9% 1,000 ML IV SCH (12:19)
[2024-04-28 12:23] LABS: Influenza A Not Detected (Not Detectd); Influenza B Not Detected (Not Detectd); RSV Not Detected (Not Detectd)
[2024-04-28 12:32] LABS: Partial Thromboplastin Time 18.5 sec (22.0-30.0)
[2024-04-28] MEDS ORDERED: LORazepam 2 MG/ML INJ IV PRN ×2 (14:07)
[2024-04-28] MEDS ORDERED: LORazepam 1 MG TAB PO PRN (14:07)
[2024-04-28] MEDS: LACTATED RINGERS 1,000 ML IV SCH (14:09)
--- NOTE | 2024-04-28 14:14 | P.HPIM ---
History of Present Illness H&P Date: 04/28/24 Patient is a 58-year-old female with history of depression/anxiety and alcohol dependence presenting with weakness, shakiness, generally not feeling well for the last 10 days. She claims that over the last 10 days she has been having some abdominal pain as well as some left upper quadrant pain wrapping to her back. She has also been feeling nauseated and had some vomiting. She denies a ny fevers or chills. She had poor appetite. 1 week ago she developed nosebleed which resolved. She claims that she only drinks alcohol twice a week, which is usually wine, but on further probing she does admit to drinking other types of alcohol throughout the week. Her last drink was about 1 week ago according to her. She did st start developing shakes 2 days ago. In the ED, temperature was 97.8, pulse 132, respiratory rate 20, blood pressure 96/62, saturating at 97% on room air. WBC 13.3, hemoglobin 12.6, platelet 470, sodium 136, potassium 3.7, bicarb 13, anion gap 20, creatinine 0.77, calcium 10.7, troponin 0.016, lipase 2271. Respiratory viral panel negative. EKG independently interpreted, shows sinus tachycardia. Chest x-ray independently interpreted, did not show any acute process. Patient started on IV fluids. Being admitted for acute pancreatitis. Pertinent positives and negatives as discussed in HPI, a complete review of systems was performed and all other systems are negative. Patient seen and examined at bedside. Vital signs reviewed General: nontoxic, no distress, appears at stated age Derm: warm, dry Head: atraumatic, normocephalic, symmetric Eyes: EOMI, no lid lag, anicteric sclera, pupils equal round reactive to light ENT: Nose and ears atraumatic Neck: No thyromegaly, supple Mouth: no lip lesion, mucus membranes moist Cardiovascular: S1S2 reg, no murmur, no edema Lungs: clear to auscultation bilateral, no rhonchi, no rales, no wheeze, no accessory muscle use Abdominal: soft, epigastric tenderness to deep palpation, no guarding, no appreciable organomegaly Ext: no gross muscle atrophy, muscle strength muscle strength 5 out of 5 in all 4 extremities, no contractures Neuro: CN II-XII grossly intact, tremulous Psych: Alert, oriented, appropriate affect Assessment/Plan: Active: Acute pancreatitis, likely alcoholic -LDH ordered -Continue lactated Ringer 150 cc an hour -Pain control with IV Dilaudid as needed -Patient on clear liquid diet -Discussed management with GI -Alcohol level pending -CT abdomen pelvis pending SIRS -Likely secondary to above -Blood cultures ordered High anion gap metabolic acidosis Dehydration Hypercalcemia -Continue IV fluids -Pending lactate levels Acute alcohol withdrawal Alcohol dependence -Last drink according to patient was 1 week ago -Continue telemetry monitoring -Ativan per CIWA -Thiamine 100 mg, folic acid 1 mg daily Chronic: Depression/anxiety The patient is admitted with an anticipated less than 2 midnight stay as observation status for evaluation of acute pancreatitis. Surrogate decision-maker: Present CODE STATUS: Full code DVT prophylaxis: Subcu heparin Anticipated discharge date: Pending clinical course Anticipated discharge place: Pending clinical course A total of 55 minutes was spent on the care of this complex patient more than 50% of the time was spent in counseling and care coordination. Past Medical History Past Medical History: GERD/Reflux, Osteoarthritis (OA), Skin Disorder Additional Past Medical History / Comment(s): Recent right ear infection, completed antibiotics and feeling better. Chronic back pain. Cannot recall name of skin disorder, states constantly scratching legs. History of Any Multi-Drug Resistant Organisms: None Reported Past Surgical History: Appendectomy, Breast Surgery, Orthopedic Surgery, Uterine Ablation Additional Past Surgical History / Comment(s): Left ankle surgery, breast red uction. Past Anesthesia/Blood Transfusion Reactions: No Reported Reaction Past Psychological History: Anxiety, Depression, Panic Disorder Smoking Status: Current every day smoker Past Alcohol Use History: Occasional Past Drug Use History: None Reported - Past Family History Mother Family Medical History: CVA/TIA, Deep Vein Thrombosis (DVT), Hyperlipidemia Father Family Medical History: Cancer Medications and Allergies Home Medications Medication Instructions Recorded Confirmed Type Sertraline [Zoloft] 100 mg PO DAILY 11/30/22 04/28/24 History busPIRone HCL [Buspar] 7.5 mg PO BID 07/20/23 04/28/24 History traZODone HCL 100 mg PO HS 04/28/24 04/28/24 History Allergies Allergy/AdvReac Type Severity Reaction Status Date / Time No Known Allergies Allergy Verified 04/28/24 12:25 Physical Exam Vitals: Vital Signs Temp Pulse Resp BP Pulse Ox 04/28/24 12:21 114 H 18 100/68 97 04/28/24 09:54 96/62 04/28/24 09:49 97.8 F 132 H 20 97 Intake and Output 04/27/24 04/28/24 04/28/24 22:59 06:59 14:59 Other: Weight 79.379 kg Results CBC & Chem 7: 04/28/24 10:02 04/28/24 10:02 Labs: Abnormal Lab Results - Last 24 Hours (Table) 04/28/24 04/28/24 04/28/24 Range/Units 10:02 10:02 11:44 WBC 13.3 H (3.8-10.6) k/uL RBC 3.76 L (3.80-5.40) m/uL MCV 105.1 H (80.0-100.0) fL Plt Count 470 H (150-450) k/uL Neutrophils # 11.4 H (1.3-7.7) k/uL Lymphocytes # 0.8 L (1.0-4.8) k/uL APTT 18.5 L (22.0-30.0) sec Sodium 136 L (137-145) mmol/L Carbon Dioxide 13 L (22-30) mmol/L Glucose 140 H (74-99) mg/dL Calcium 10.7 H (8.4-10.2) mg/dL AST 54 H (14-36) U/L Lipase 2271 H (23-300) U/L
--- NOTE | 2024-04-28 14:31 | CT ---
EXAMINATION TYPE: CT abdomen pelvis w con DATE OF EXAM: 04/28/2024 2:17 PM COMPARISON: 11/30/2022 CLINICAL INDICATION: Female, 58 years old with history of pain, pancreatitis; abdominal pain and panc reatitis. TECHNIQUE: Axial CT abdomen pelvis w con;Sagittal and coronal reformats were created on a separate w orkstation. Contrast used:100ml mL of Isovue 300 with IV Contrast, (none if empty) Oral contrast used: with Oral Contrast (none if empty) CT DLP: 1101.5 mGycm, Automated exposure control for dose reduction was used. FINDINGS: LOWER CHEST: Unremarkable ABDOMEN LIVER: Diffusely hypoattenuating parenchyma. GALLBLADDER AND BILE DUCTS: Unremarkable. PANCREAS: Fat stranding change is seen along the head neck region of the pancreas with wall thickenin g of the duodenum. SPLEEN: Unremarkable. ADRENAL GLANDS: Unremarkable. KIDNEYS AND URETERS: No evidence of hydronephrosis or renal calculus. The ureters are unremarkable. PELVIS BLADDER: No evidence for wall thickening or mass given limitations of exam. REPRODUCTIVE: Unremarkable. ABDOMEN & PELVIS STOMACH AND BOWEL: No evidence of bowel obstruction. Scattered colonic diverticula. PERITONEUM/RETROPERITONEUM: No evidence of pneumoperitoneum or free fluid. VASCULATURE: No evidence of aortic aneurysm. MUSCULOSKELETAL: No acute osseous abnormalities. Mild disc degeneration changes are present throughou t the thoracolumbar spine. Mild linear scoliosis changes of the spine. Sclerosis of the superior endp late of L3 and to a lesser extent L4 are not significantly changed from 11/30/2022. LYMPH NODES: No gross evidence for lymphadenopathy. SOFT TISSUE/ABDOMINAL WALL: Unremarkable IMPRESSION: 1. Evidence of duodenitis/groove pancreatitis. Correlate with serum lipase. Follow-up after resoluti on of symptoms recommended in 3 months to ensure resolution of the wall thickening of the duodenum to exclude mass. 2. Hepatic steatosis. 3. Moderate degeneration changes of the spine not significantly changed from 11/30/2022 4. Colonic diverticulosis. [facility], , 04/28/2024 2:29 PM
--- NOTE | 2024-04-28 14:47 | P.CONS ---
History of Present Illness - Reason for Consult Consult date: 04/28/24 Pancreatitis Requesting physician: Efrain Kerr - Chief Complaint Bloody nose, weakness - History of Present Illness This is a pleasant 58-year-old female who presented to the emergency department with multiple complaints including generalized weakness, not feeling well, bl oody nose and nausea and vomiting. Patient has a history of GERD and arthritis. States that she was having nausea and vomiting over the past week stating that as she was having difficulty keeping food down. She states she has not had any vomiting for last 2 days duration. She was noted to have elevated lipase on admission. She denies any new medications, denies any abdominal pain but does report a history of pancreatitis she believes diagnosed last year. She is unclear of etiology. She does admit that she is a moderate drinker and reports drinking wine and sometimes other alcohol at least 2 days a week, but then went on to say that she sometimes puts liquor in her coffee. Patient is quite shaky at this time. States she has not had a drink in about 5 days. No imaging available at this time. WBC 13 hemoglobin 12.6 hematocrit 39 platelet count 470,000 INR 1.0 sodium 136 potassium 3.7 BUN 11 creatinine 0.7 total bilirubin 1.1 AST 54 ALT 75 alkaline phosphatase 25 lipase 2271. Influenza RSV and COVID serology not detected. Review of Systems REVIEW OF SYSTEMS: CARDIOPULMONARY: No chest pain or shortness of breath. Gastrointestinal: No abdominal pain. Nausea and vomiting for 1 week, none for the last 2 days duration. No hematemesis, coffee-ground emesis. No rectal bleeding, or melena. GENITOURINARY: No dysuria or hematuria. MUSCULOSKELETAL: Reports normal range of motion., Joint pain. SKIN: No rashes. No jaundice. ENDOCRINE: No chills, fevers. No excessive weight gain or loss. No polydipsia or polyuria. PSYCHIATRIC: Unremarkable. NEUROLOGY: No change in mental status. Denies dizziness, headache. ENT: Vision unremarkable. Epistaxis yesterday and today. CONSTITUTIONAL: No recent weight loss. No fever, chills, night sweats. S haky/tremors. Past Medical History Past Medical History: GERD/Reflux, Osteoarthritis (OA), Skin Disorder Additional Past Medical History / Comment(s): Recent right ear infection, completed antibiotics and feeling better. Chronic back pain. Cannot recall name of skin disorder, states constantly scratching legs. History of Any Multi-Drug Resistant Organisms: None Reported Past Surgical History: Appendectomy, Breast Surgery, Orthopedic Surgery, Uterine Ablation Additional Past Surgical History / Comment(s): Left ankle surgery, breast reduction. Past Anesthesia/Blood Transfusion Reactions: No Reported Reaction Past Psychological History: Anxiety, Depression, Panic Disorder Smoking Status: Current every day smoker Past Alcohol Use History: Occasional Past Drug Use History: None Reported - Past Family History Mother Family Medical History: CVA/TIA, Deep Vein Thrombosis (DVT), Hyperlipidemia Father Family Medical History: Cancer Medications and Allergies Home Medications Medication Instructions Recorded Confirmed Type Sertraline [Zoloft] 100 mg PO DAILY 11/30/22 04/28/24 History busPIRone HCL [Buspar] 7.5 mg PO BID 07/20/23 04/28/24 History traZODone HCL 100 mg PO HS 04/28/24 04/28/24 History Allergies Allergy/AdvReac Type Severity Reaction Status Date / Time No Known Allergies Allergy Verified 04/28/24 12:25 Physical Exam Vitals: Vital Signs Temp Pulse Resp BP Pulse Ox 04/28/24 12:21 114 H 18 100/68 97 04/28/24 09:54 96/62 04/28/24 09:49 97.8 F 132 H 20 97 Intake and Output 04/27/24 04/28/24 04/28/24 22:59 06:59 14:59 Other: Weight 79.379 kg General appearance: The patient is alert, oriented, appears in no acute d istress. Patient hands very shaky. HET: Head is normocephalic and atraumatic. Conjunctiva pink. Sclera anicteric. Neck: Supple without lymphadenopathy. Trachea midline. Heart: Regular. Lungs: Equal expansion, normal respiratory effort. Abdomen: Soft, nontender, nondistended. Skin: No rashes. No jaundice. Extremities: Normal skin color and turgor. No pedal edema. Neurological: No focal deficits. Alert and oriented x3. Results CBC & Chem 7: 04/28/24 10:02 04/28/24 10:02 Labs: Abnormal Lab Results - Last 24 Hours (Table) 04/28/24 04/28/24 04/28/24 Range/Units 10:02 10:02 11:44 WBC 13.3 H (3.8-10.6) k/uL RBC 3.76 L (3.80-5.40) m/uL MCV 105.1 H (80.0-100.0) fL Plt Count 470 H (150-450) k/uL Neutrophils # 11.4 H (1.3-7.7) k/uL Lymphocytes # 0.8 L (1.0-4.8) k/uL APTT 18.5 L (22.0-30.0) sec Sodium 136 L (137-145) mmol/L Carbon Dioxide 13 L (22-30) mmol/L Glucose 140 H (74-99) mg/dL Calcium 10.7 H (8.4-10.2) mg/dL AST 54 H (14-36) U/L Lipase 2271 H (23-300) U/L Comments: CT abdomen pelvis reports evidence of duodenitis/groove pancreatitis. Correlate with serum lipase. Follow-up after resolution of symptoms recommended in 3 months to ensure resolution of wall thickening of the duodenum to exclude mass. Hepatic steatosis. Moderate degeneration changes of the spine not significan tly changed from 11/30/2022. Colonic diverticulosis. Assessment and Plan (1) Pancreatitis Narrative/Plan: 58-year-old female presenting with multiple complaints to the emergency department with a history of pancreatitis about a year ago with unclear etiology. Likely acute pancreatitis secondary to alcohol use. Patient admits to being a moderate drinker, with no CT evidence of gallstone pancreatitis, no reported new medications and no family history of pancreatitis. Will continue to follow and treat symptomatically. Recommend alcohol abstinence. Current Visit: Yes Status: Acute Code(s): K85.90 - ACUTE PANCREATITIS WITHOUT NECROSIS OR INFECTION, UNSP SNOMED Code(s): 48679970 (2) Epistaxis Current Visit: Yes Status: Acute Code(s): R04.0 - EPISTAXIS SNOMED Code(s): 302466658 (3) Alcohol use Narrative/Plan: Monitor for withdrawal symptoms, CIWA protocol Current Visit: Yes Status: Acute Code(s): Z78.9 - OTHER SPECIFIED HEALTH STATUS SNOMED Code(s): 534263 Plan: 1. Continue symptomatic and supportive care 2. Antiemetics as needed 3. Aggressive IV hydration 4. Patient may have clear liquid diet 5. Repeat CMP and lipase tomorrow 6. Recommend alcohol abstinence 7. Monitor for signs of withdrawal, CIWA protocol 8. Protonix 40 mg daily for GI prophylaxis Thank you for this consultation, we will continue to follow. Dr. Kaila Dooley I agree with the dictator's note, documented as a scribe by Elvie Valdez.
[2024-04-28 14:56] LABS: Alcohol <10 mg/dL; LDH 163 U/L (120-246)
[2024-04-28] MEDS: THIAMINE 100 MG/ML 2 ML VIAL IM STA (15:09)
[2024-04-28] MEDS: HEPARIN SODIUM,PORCINE 5,000 UNIT/ML 1 ML VIAL SQ SCH (15:09)
[2024-04-28] MEDS: HYDROmorphone 0.5 MG/0.5 ML SYRINGE IVP PRN (19:51)
[2024-04-28] MEDS: traZODone HCL 100 MG TAB PO SCH (21:20)
[2024-04-28] MEDS: busPIRone HCl 5 MG TAB PO SCH (22:01)
[2024-04-29 07:48] VITALS: BP 109/72; PULSE 77; RESP 17; TEMP 98.6
[2024-04-29 08:09] LABS: Basophils % (A) 0 %; Eosinophils # (A) 0.3 k/uL (0-0.7); Eosinophils % (A) 4 %; HCT 34.5 % (34.0-46.0); HGB 11.2 gm/dL (11.4-16.0); Lymphocytes % (A) 13 %; MCH 34.1 pg (25.0-35.0); MCHC 32.4 g/dL (31.0-37.0); MCV 105.2 fL (80.0-100.0); Macrocytosis Moderate; Mean Platelet Volume 7.8; Monocytes # (A) 0.5 k/uL (0-1.0); Monocytes % (A) 7 %; Neutrophils # (A) 5.8 k/uL (1.3-7.7); Neutrophils % (A) 74 %; Platelet Count 411 k/uL (150-450); Poikilocytosis Slight; RBC 3.28 m/uL (3.80-5.40); RDW 14.5 % (11.5-15.5); WBC 7.8 k/uL (3.8-10.6)
[2024-04-29] MEDS: LORazepam 1 MG TAB PO PRN (08:10)
[2024-04-29] MEDS: FOLIC ACID 1 MG TAB PO SCH (08:10)
[2024-04-29] MEDS: SERTRALINE 100 MG TAB PO SCH (08:10)
[2024-04-29] MEDS: THIAMINE 100 MG TAB PO SCH (08:10)
[2024-04-29 08:20] LABS: ALT 21 U/L (4-34); AST 28 U/L (14-36); African American GFR (CKD) >90 (>60 ml/min/1.73 sqM); Albumin 3.9 g/dL (3.5-5.0); Alkaline Phosphatase 108 U/L (38-126); Amylase 111 U/L (30-110); Anion Gap 8 mmol/L; Blood Urea Nitrogen 14 mg/dL (7-17); Calcium 10.6 mg/dL (8.4-10.2); Carbon Dioxide 26 mmol/L (22-30); Chloride 100 mmol/L (98-107); Glucose 96 mg/dL (74-99); Lipase 907 U/L (23-300); Non-African American GFR(CKD) >90 (>60 ml/min/1.73 sqM); Potassium 3.1 mmol/L (3.5-5.1); Sodium 134 mmol/L (137-145); Total Bilirubin 0.7 mg/dL (0.2-1.3); Total Protein 6.1 g/dL (6.3-8.2)
[2024-04-29] MEDS ORDERED: HYDROmorphone 1 MG/ML 1 ML SYRINGE IVP PRN (08:21)
[2024-04-29] MEDS ORDERED: HYDROcodone/APAP 5-325MG 1 EACH TAB PO PRN (08:21)
[2024-04-29] MEDS: POTASSIUM CHLORIDE ER 20 MEQ TAB.ER PO STA (10:01)
--- NOTE | 2024-04-29 12:35 | P.PN ---
Subjective Progress Note Date: 04/29/24 Principal diagnosis: Pancreatitis This is a pleasant 58-year-old female who presented to the emergency department with multiple complaints including generalized weakness, not feeling well, bloody nose and nausea and vomiting. Patient has a history of GERD and arthritis. States that she was having nausea and vomiting over the past week stating that as she was having difficulty keeping food down. She states she has not had any vomiting for last 2 days duration. She was noted to have elevated lipase on admission. She denies any new medications, denies any abdominal pain but does report a history of pancreatitis she believes diagnosed last year. She is unclear of etiology. She does admit that she is a moderate drinker and reports drinking wine and sometimes other alcohol at least 2 days a week, but then went on to say that she sometimes puts liquor in her coffee. Patient is quite shaky at this time. States she has not had a drink in about 5 days. No imaging available at this time. WBC 13 hemoglobin 12.6 hematocrit 39 platelet count 470,000 INR 1.0 sodium 136 potassium 3.7 BUN 11 creatinine 0.7 total bilirubin 1.1 AST 54 ALT 75 alkaline phosphatase 25 lipase 2271. Influenza RSV and COVID serology not detected. 04/29/2024 Patient seen and examined today as a follow-up. She is currently on CIWA protocol and has needed Ativan. Patient still remains very shaky. Nursing is reporting patient very scattered with her thoughts. She states abdominal pain has improved some, still has some upper abdominal discomfort. No nausea or vomiting. Leukocytosis improved, LFTs unremarkable. Lipase improving 907 today down from 2271 yesterday Objective - Vital Signs Vital signs: Vital Signs Temp 98.6 F 04/29/24 07:00 Pulse 77 04/29/24 07:00 Resp 17 04/29/24 07:00 BP 109/72 04/29/24 07:00 Pulse Ox 97 04/29/24 07:00 FiO2 Intake & Output 04/28/24 04/29/24 04/29/24 18:59 06:59 18:59 Weight 79.379 kg - Exam General appearance: The patient is alert, oriented, appears in no acute distress. Patient is very jittery/shaky, scattered with her thoughts. HET: Head is normocephalic and atraumatic. Conjunctiva pink. Sclera anicteric. Neck: Supple without lymphadenopathy. Abdomen: Soft, upper abdominal tenderness, nondistended. Extremities: Normal skin color and turgor. No pedal edema Skin: No rashes, no jaundice Neurological: No focal deficits. Alert and oriented. - Labs CBC & Chem 7: 04/29/24 07:02 04/29/24 07:02 Labs: Abnormal Lab Results - Last 24 Hours (Table) 04/28/24 04/28/24 04/28/24 Range/Units 10:02 10:02 11:44 WBC 13.3 H (3.8-10.6) k/uL RBC 3.76 L (3.80-5.40) m/uL Hgb (11.4-16.0) gm/dL MCV 105.1 H (80.0-100.0) fL Plt Count 470 H (150-450) k/uL Neutrophils # 11.4 H (1.3-7.7) k/uL Lymphocytes # 0.8 L (1.0-4.8) k/uL APTT 18.5 L (22.0-30.0) sec Sodium 136 L (137-145) mmol/L Potassium (3.5-5.1) mmol/L Carbon Dioxide 13 L (22-30) mmol/L Glucose 140 H (74-99) mg/dL Calcium 10.7 H (8.4-10.2) mg/dL AST 54 H (14-36) U/L Total Protein (6.3-8.2) g/dL Amylase (30-110) U/L Lipase 2271 H (23-300) U/L 04/29/24 04/29/24 Range/Units 07:02 07:02 WBC (3.8-10.6) k/uL RBC 3.28 L (3.80-5.40) m/uL Hgb 11.2 L (11.4-16.0) gm/dL MCV 105.2 H (80.0-100.0) fL Plt Count (150-450) k/uL Neutrophils # (1.3-7.7) k/uL Lymphocytes # (1.0-4.8) k/uL APTT (22.0-30.0) sec Sodium 134 L (137-145) mmol/L Potassium 3.1 L (3.5-5.1) mmol/L Carbon Dioxide (22-30) mmol/L Glucose (74-99) mg/dL Calcium 10.6 H (8.4-10.2) mg/dL AST (14-36) U/L Total Protein 6.1 L (6.3-8.2) g/dL Amylase 111 H (30-110) U/L Lipase 907 H (23-300) U/L Assessment and Plan (1) Pancreatitis Narrative/Plan: 58-year-old female presenting with multiple complaints to the emergency departm ent with a history of pancreatitis about a year ago with unclear etiology. Likely acute pancreatitis secondary to alcohol use. Patient admits to being a moderate drinker, with no CT evidence of gallstone pancreatitis, no reported new medications and no family history of pancreatitis. Patient appears to be going through alcohol withdrawal symptoms, on CIWA protocol. Will continue to follow and treat symptomatically. Recommend alcohol abstinence. No further workup for pancreatitis. Current Visit: Yes Status: Acute Code(s): K85.90 - ACUTE PANCREATITIS WITHOUT NECROSIS OR INFECTION, UNSP SNOMED Code(s): 97889366 (2) Epistaxis Current Visit: Yes Status: Acute Code(s): R04.0 - EPISTAXIS SNOMED Code(s): 254724191 (3) Alcohol use Narrative/Plan: Continue CIWA protocol for alcohol withdrawal symptoms Current Visit: Yes Status: Acute Code(s): Z78.9 - OTHER SPECIFIED HEALTH STATUS SNOMED Code(s): 771048 Plan: 1. Continue symptomatic and supportive care 2. Antiemetics as needed 3. Advance to full liquid diet, then advance as tolerated 4. Continue pain medication as needed 5. Recommend alcohol abstinence 6. Monitor for signs of withdrawal, CIWA protocol 7. Protonix 40 mg daily for GI prophylaxis 8. Replace potassium per protocol 9. Rest of medical management per primary medical team Thank you for this consultation, we will continue to follow. Dr. Kaila Dooley I agree with the dictator's note, documented as a scribe by Elvie Valdez.
--- NOTE | 2024-04-29 13:51 | P.DS ---
Providers Date of admission: 04/28/24 11:35 Expected date of discharge: 04/29/24 Attending physician: Lv Gilbert Consults: 04/28/24 11:39 Consult Physician Routine Consulting Provider: Kia Dooley Consult Reason/Comments: Pancreatitis Do you want consulting provider notified?: Yes Primary care physician: Stated None Hospital Course: Discharge Diagnosis: Acute pancreatitis, likely alcoholic Hypokalemia Leukocytosis High anion gap metabolic acidosis Dehydration Hypercalcemia Acute alcohol withdrawal Alcohol dependence Depression/anxiety Hospital Course: 58-year-old female with history of depression/anxiety and alcohol dependence presenting with weakness, shakiness, generally not feeling well for the last 10 days. In the ED, temperature was 97.8, pulse 132, respiratory rate 20, blood pressure 96/62, saturating at 97% on room air. WBC 13.3, hemoglobin 12.6, platelet 470, sodium 136, potassium 3.7, bicarb 13, anion gap 20, creatinine 0.77, calcium 10.7, troponin 0.016, lipase 2271. Respiratory viral panel negative. EKG independently interpreted, shows sinus tachycardia. Chest x-ray independently interpreted, did not show any acute process. Patient started on IV fluids. Being admitted for acute pancreatitis. CT abdomen pelvis showed evidence of duodenitis/acute pancreatitis, 3-month follow-up. GI was consulted. Patient tolerated oral intake. Pain improved. Being discharged home with close follow-up with PCP GI. Patient seen and examined at bedside. Vital signs reviewed and stable. General: Nontoxic, no distress, appears at stated age Derm: Warm, dry Head: Atraumatic, normocephalic, symmetric Eyes: EOMI, no lid lag, anicteric sclera Mouth: No lip lesion, mucus membranes moist Cardiovascular: S1S2 reg, no murmur Lungs: CTA bilateral, no rhonchi, no rales, no accessory muscle use Abdominal: Soft, nontender to palpation, no guarding, no appreciable organomegaly Ext: No gross muscle atrophy, no edema, no contractures Neuro: CN II-XI grossly intact, no focal neuro deficits Psych: Alert, oriented, appropriate affect A total of 36 minutes of time were spent preparing this complex discharge summary. Patient was discharged on 04/29/24 with 943. Plan - Discharge Summary New Discharge Prescriptions: New Folic Acid 1 mg PO DAILY #90 tab Thiamine [Vitamin B-1] 100 mg PO DAILY #90 tab Continue Sertraline [Zoloft] 100 mg PO DAILY busPIRone HCL [Buspar] 7.5 mg PO BID traZODone HCL 100 mg PO HS Discharge Medication List Sertraline [Zoloft] 100 mg PO DAILY 11/30/22 [History] busPIRone HCL [Buspar] 7.5 mg PO BID 07/20/23 [History] traZODone HCL 100 mg PO HS 04/28/24 [History] Folic Acid 1 mg PO DAILY #90 tab 04/29/24 [Rx] Thiamine [Vitamin B-1] 100 mg PO DAILY #90 tab 04/29/24 [Rx] Follow up Appointment(s)/Referral(s): Kia Dooley MD [STAFF PHYSICIAN] - 1 Week [facility] [NON-STAFF] - 1 Week Patient Instructions/Handouts: Pancreatitis (DC), Low Fat Diet (DC), Potassium Content of Foods List (DC), Hypokalemia (DC) Activity/Diet/Wound Care/Special Instructions: Please see GI and PCP. You will need repeat blood work to monitor your electrolytes. Discharge/Stand Alone Forms: AA Meetings [place], [facility] Resources, Outpatient Counseling, In Substance Abuse Facilities Discharge Disposition: HOME SELF-CARE
== END 2024-04-29 16:00 | disposition home or self-care (01) ==
LOC: EC 09:23 → INTOOBSV 11:35 → 3SCARD 11:35 → 6NMEDSUR 11:57 → 1SOBS 15:32
PROVIDERS: ADMIT Student in an Organized Health Care Education/Training Program; ATTEND Student in an Organized Health Care Education/Training Program
DX: K85.90 Acute pancreatitis without necrosis or infection, unspecified (principal); R65.10 Systemic inflammatory response syndrome (SIRS) of non-infectious origin without acute organ dysfunction; R04.0 Epistaxis; E87.20 Acidosis, unspecified; E86.0 Dehydration; E83.52 Hypercalcemia; E87.6 Hypokalemia; F10.239 Alcohol dependence with withdrawal, unspecified; K21.9 Gastro-esophageal reflux disease without esophagitis; F32.A Depression, unspecified; F41.0 Panic disorder [episodic paroxysmal anxiety]; F17.200 Nicotine dependence, unspecified, uncomplicated; Y90.0 Blood alcohol level of less than 20 mg/100 ml; Z79.899 Other long term (current) drug therapy
CPT/HCPCS: 96376; 96375 ×2; 96372; 96374; 99285; 36415; 93005; 80053 ×2; 82150; 83605; 83615; 83690 ×2; 83735; 84484; 85025 ×2; 85610; 85730; 87040; 80320; 87636; 71046; 74177; G0378 ×2; J2270; J3411; J2405; J3490; J1171 ×2; Q9967; J2470 ×2